=== PATIENT | female | born 1960 | race Caucasian/White ===

== ENCOUNTER 2024-08-01 15:20 | Emergency (ER) | payer OTHER ==
[~2024-08-01] VITALS: Ht 154.9 cm; Wt 59.0 kg
[2024-08-01 15:24] VITALS: BP 115/62; PULSE 44; RESP 18; TEMP 98.3; O2SAT 96
[2024-08-01] MEDS: HYDROcodone/APAP 5/325 MG 1 TAB TAB PO ONE (18:20)
[2024-08-01 19:22] VITALS: BP 143/75; PULSE 43; RESP 11; O2SAT 96
== END 2024-08-01 19:22 | disposition home or self-care (01) ==
LOC: MED 15:20
DX: S01.01XA Laceration without foreign body of scalp, initial encounter (principal); M25.512 Pain in left shoulder; R00.1 Bradycardia, unspecified; I50.9 Heart failure, unspecified; Z86.69 Personal history of other diseases of the nervous system and sense organs; W19.XXXA Unspecified fall, initial encounter; Y93.89 Activity, other specified; Y92.89 Other specified places as the place of occurrence of the external cause; Y99.8 Other external cause status
CPT/HCPCS: 12001; 70450; 72125; 73030; 99284